=== PATIENT | female | born 1985 | race Hispanic/Latino ===

== ENCOUNTER 2017-04-23 11:19 | Emergency (ER) | payer BC ==
[~2017-04-23] VITALS: Ht 157.5 cm; Wt 78.5 kg
--- NOTE | 2017-04-23 12:13 | Diagnostic Imaging Report ---
Left Ankle - 3 views HISTORY: Pain. COMPARISON: None available. FINDINGS: Bones: No acute displaced fracture. No expansile lytic or sclerotic lesion. Joints: The joint spaces are well-maintained. No dislocation. Soft tissues: Soft tissue swelling is present in the lateral malleolus. IMPRESSION: Soft tissue swelling of the lateral malleolus, without underlying osseous abnormality, may represent a ligamentous injury. Signed by: Dr. Kevin Mosquera M.D. on 04/23/2017 12:09 PM
== END 2017-04-23 13:23 | disposition home or self-care (01) ==
LOC: ER 11:19
DX: S93.422A Sprain of deltoid ligament of left ankle, initial encounter (principal); W18.39XA Other fall on same level, initial encounter; Y93.01 Activity, walking, marching and hiking; Y92.488 Other paved roadways as the place of occurrence of the external cause